=== PATIENT | male | born 1950 | race Caucasian/White ===

== ENCOUNTER 2018-01-17 10:08 | Emergency (ER) | payer MEDICARE, OTHER, SELFPAY ==
[2018-01-17 10:30] VITALS: BP 109/75; PULSE 86; RESP 18; TEMP 36.7; O2SAT 99; BMI 21.9
--- NOTE | 2018-01-17 10:38 | HMH.EDUTC ---
[facility] [place] Disposition Clinical Impression: Upper respiratory infection Disposition: Home, Self-Care Condition on Discharge: Good Instructions: Cough, DI for Nasal Congestion, Loperamide Additional Instructions: *Nasal saline and bulb syringe or nose theo to remove nasal drainage and help with nasal congestion. Hard to eat, drink, or sleep with nasal congestion so important to keep nose cleaned out. * Monitor Temp. Tylenol and/or Ibuprofen as needed. ER if fever is no less than 101 despite alternating Tylenol and Ibuprofen * Encourage fluids, water, Gatorade, powerade, pedialyte if infant/toddler/or child * Warm salt water gargles for throat irritation *Warm fluids *Sore throat lozenges *Sleep elevated *humidifier or vaporizer Lots of rest Increase fluids, water, Gatorade, powerade Follow up IMMEDIATELY for new or worsening of symptoms OR no noticeable improvement over the next 48-72 hours. 911 immediately for any life threatening symptoms such as chest pain or difficulty breathing Collect stool specimen for diarrhea panel and bring to lab, follow up with Dr Rankin for results and further evaluation and treatment Over the counter Immodium if diarrhea continues Prescriptions: Azithromycin [Z-Juan Diego 250mg Tab] 250 mg PO UD DOSE PK #6 tab Dextromethorphan Polistirex [Delsym] 10 ml PO Q12H PRN #300 jaqueline.er.12h PRN Reason: Cough predniSONE [Prednisone 5mg Tab Dose-Pack] 5 mg PO UD DOSE PK #21 pack Referrals: Neil Rankin MD [Primary Care Provider] - Forms: Work/School Release Medical Decision Making - Medical Records Medical records reviewed: Yes: I reviewed the patient's medical records. - Lex Inquiry Pt receiving controlled substance: No Lex was queried for this patient: No Vital Signs: 01/17/18 10:30 Temperature 98.1 F Temperature Source Temporal Artery Scan Pulse Rate [Right] 86 Respiratory Rate 18 Blood Pressure [Right Arm] 109/75 Blood Pressure Mean [Right Arm] 86 Blood Pressure Source [Right Arm] Automatic Cuff Blood Pressure Position [Right Arm] Sitting 02 Sat by Pulse Oximetry 99 Oxygen Delivery Method Room Air [facility] [place] HPI - General Stated complaint: Congestion,Cough Time Seen by Provider: 01/17/18 10:38 Mode of Arrival: Ambulatory Source of Information: Patient Limitations: No Limitations Description of Symptoms (Recalled from Triage Doc. by RN): COUGH, CONGESTION, DIARRHEA HEENT Symptoms (Recalled from RN notes): Yes Resp Symptoms (Recalled from RN notes): No Skin Symptoms (Recalled from RN notes): No MS Symptoms (Recalled from RN notes): No Functional Status (Recalled from RN notes): N - History of Present Illness Provider Complaint: Patient state that he has been having cough, sinus pain and pressure along with diarrhea States that symptoms began on Wednesday and have continued to get worse State that he feels like he is having pressure under his eyes his cough worsens at night State that he has also been having diarrhea - Related Data Previous Rx's Medication Instructions Recorded Azithromycin [Z-Juan Diego 250mg Tab] 250 mg PO UD DOSE PK #6 tab 01/17/18 Dextromethorphan Polistirex 10 ml PO Q12H PRN #300 jaqueline.er.12h 01/17/18 [Delsym] predniSONE [Prednisone 5mg Tab 5 mg PO UD DOSE PK #21 pack 01/17/18 Dose-Pack] Allergies Allergy/AdvReac Type Severity Reaction Status Date / Time No Known Allergies Allergy Verified 01/17/18 10:36 - Worker's Comp Is this a Worker's Comp case?: No [facility] History I have reviewed the patient's past medical history: Yes Medical History: Reports:: Hyperlipidemia, Hypertension, Transient Ischemic Attacks (TIA) - Social History Alcohol Intake: never - Psychiatric History Expresses thoughts of harming self/others: None Suicide Plan Description: No Plan ROS Obtained: Yes All systems reviewed & no additional complaints - Constitutional Constitutional: Denies chills, Denies fever(s) - ENT Ears, Nose, Mouth, and Throat: Reports nasal conge
--- NOTE | 2018-01-17 10:41 | ED_ITS ---
[facility] [place] Clinical Impression: Upper respiratory infection Disposition: Home, Self-Care Condition on Discharge: Good Instructions: Cough, DI for Nasal Congestion, Loperamide Additional Instructions: *Nasal saline and bulb syringe or nose theo to remove nasal drainage and help with nasal congestion. Hard to eat, drink, or sleep with nasal congestion so important to keep nose cleaned out. * Monitor Temp. Tylenol and/or Ibuprofen as needed. ER if fever is no less than 101 despite alternating Tylenol and Ibuprofen * Encourage fluids, water, Gatorade, powerade, pedialyte if infant/toddler/or child * Warm salt water gargles for throat irritation *Warm fluids *Sore throat lozenges *Sleep elevated *humidifier or vaporizer Lots of rest Increase fluids, water, Gatorade, powerade Follow up IMMEDIATELY for new or worsening of symptoms OR no noticeable improvement over the next 48-72 hours. 911 immediately for any life threatening symptoms such as chest pain or difficulty breathing Collect stool specimen for diarrhea panel and bring to lab, follow up with Dr Rankin for results and further evaluation and treatment Over the counter Immodium if diarrhea continues Prescriptions: Azithromycin [Z-Juan Diego 250mg Tab] 250 mg PO UD DOSE PK #6 tab Dextromethorphan Polistirex [Delsym] 10 ml PO Q12H PRN #300 jaqueline.er.12h PRN Reason: Cough predniSONE [Prednisone 5mg Tab Dose-Pack] 5 mg PO UD DOSE PK #21 pack Referrals: Neil Rankin MD [Primary Care Provider] - Forms: Work/School Release Medical Decision Making - Medical Records Medical records reviewed: Yes: I reviewed the patient's medical records. - Lex Inquiry Pt receiving controlled substance: No Lex was queried for this patient: No Vital Signs: 01/17/18 10:30 Temperature 98.1 F Temperature Source Temporal Artery Scan Pulse Rate [Right] 86 Respiratory Rate 18 Blood Pressure [Right Arm] 109/75 Blood Pressure Mean [Right Arm] 86 Blood Pressure Source [Right Arm] Automatic Cuff Blood Pressure Position [Right Arm] Sitting 02 Sat by Pulse Oximetry 99 Oxygen Delivery Method Room Air [facility] [place] - General Stated complaint: Congestion,Cough Time Seen by Provider: 01/17/18 10:38 Mode of Arrival: Ambulatory Source of Information: Patient Limitations: No Limitations Description of Symptoms (Recalled from Triage Doc. by RN): COUGH, CONGESTION, DIARRHEA HEENT Symptoms (Recalled from RN notes): Yes Resp Symptoms (Recalled from RN notes): No Skin Symptoms (Recalled from RN notes): No MS Symptoms (Recalled from RN notes): No Functional Status (Recalled from RN notes): N - History of Present Illness Provider Complaint: Patient state that he has been having cough, sinus pain and pressure along with diarrhea States that symptoms began on Wednesday and have continued to get worse State that he feels like he is having pressure under his eyes his cough worsens at night State that he has also been having diarrhea - Related Data Previous Rx's Medication Instructions Recorded Azithromycin [Z-Juan Diego 250mg Tab] 250 mg PO UD DOSE PK #6 tab 01/17/18 Dextromethorphan Polistirex 10 ml PO Q12H PRN #300 jaqueline.er.12h 01/17/18 [Delsym] predniSONE [Prednisone 5mg Tab 5 mg PO UD DOSE PK #21 pack 01/17/18 Dose-Pack] Allergies Allergy/AdvReac Type Severity Reaction Status Date / Time No Known Allergies Allergy Verified 01/17/18 10
[2018-01-17 10:50] VITALS: BP 109/75; PULSE 86; RESP 18; TEMP 36.7
== END 2018-01-17 10:55 | disposition home or self-care (01) ==
PROVIDERS: Emergency Provider Nurse Practitioner; Family Provider Family Medicine; PCP Family Medicine
DX: J06.9 Acute upper respiratory infection, unspecified (principal); I10 Essential (primary) hypertension; E78.5 Hyperlipidemia, unspecified
CPT/HCPCS: G0463; 99201

== ENCOUNTER → 2019-04-03 07:57 | Outpatient (CLI) | payer MEDICARE, SELFPAY ==
--- NOTE | 2019-04-03 08:02 | CT_ITS ---
CT lung screening EXAM: CT LUNG LOW DOSE WO CONTRAST HISTORY: 70 pack-year smoking history, asymptomatic for lung cancer ITS.REASON: CURRENT TOBACCO USE ORDERING PHYSICIAN: Neil Rankin MD PATIENT AGE: 69 years COMPARISON: None TECHNIQUE: The exam was performed on a GE Light Speed [address] scanner using 2.90 mGy CTDI. A low dose helical CT CHEST was performed on a multi-detector scanner. All CT scans at the facility use one or more dose reduction, viz: automated exposure control, ma/kV adjustment per patient size (including targeted exams where dose is matched to indication, i.e. head), or iterative reconstruction technique. The LDCT was performed in a facility that meets the criteria for the screening program. Data regarding this exam was submitted to [employer] which is an approved registry. The order for this exam indicates that it came as a result of a lung cancer screening counseling shard decision-making visit that included all the elements required of such a visit including smoking cessation. The radiologist interpreting this exam meets the CMS criteria for the LDCT lung cancer screening program. The exam is reported using the Lung-RADS classification scale and reported to the ACR registry. NOTE: This study was performed for the specific purposes of lung cancer screening and is not an alternative to diagnostic chest CT. RADIATION DOSE: CTDI vol(CT dose Index-volume) = 2.90mG DLP (Dose Length Product) = 1.68 mGcm FINDINGS: COPD, centrilobular emphysema. Coronary artery calcification. Small hiatal hernia. Calcified granuloma is present in the left lower lobe. No suspicious pulmonary nodules. There is mild diffuse bronchial thickening with hyperinflation. No acute bony findings. IMPRESSION: 1. Lung RADS Category: 2, benign 2. Other findings: COPD, centrilobular emphysema, coronary artery disease RECOMMENDATIONS: 12 month LDCT follow-up
== END ==
PROVIDERS: PCP Family Medicine; Visit Provider Family Medicine
DX: Z12.2 Encounter for screening for malignant neoplasm of respiratory organs (principal); Z87.891 Personal history of nicotine dependence